=== PATIENT | female | born 1990 | race Caucasian/White ===

== ENCOUNTER → 2016-04-18 | Outpatient (CLI) | payer OTHER ==
--- NOTE | 2016-04-18 18:11 | DIAGNOSTIC IMAGING REPORT ---
PROCEDURE: US OB DETAILED ANATOMIC INDICATION: ANATOMY TECHNIQUE: Betancur scale, color, and spectral Doppler images of the second trimester gravid uterus were obtained. COMPARISON: OB ultrasound 02/22/2016 FINDINGS: Single intrauterine with breech presentation, anterior placenta without previa. Heart rate 140 bpm. Amniotic fluid is unremarkable. Normal closed cervix measures 4.5 cm. The anatomic survey, including the intracranial anatomy, nuchal region, spine, [id number]-[id number] view, chest and diaphragm, stomach and abdomen, three-vessel cord and cord insertion, bladder and pelvis, kidneys and extremities, is within normal limits. Profile and outflow tracts were not well visualized. BPD 4.3 cm, 19 weeks; head circumference 16 cm, 18 weeks 6 days; abdominal circumference 14.2 cm, 19 weeks 4 days; femur length 2.9 cm, 18 weeks 6 days. Composite age 19 weeks 1 day. VALORIE 09/11/2016. IMPRESSION: 1. Single live intrauterine , breech, 19 weeks 1 day 2. VALORIE 09/11/2016, 6 days accelerated growth 3. Profile and outflow tracts not well visualized. Recommend follow-up ultrasound in 2-3 weeks. 4. Remainder of the anatomic survey is within normal limits
== END ==
LOC: US SRH 16:23
DX: O32.1XX0 Maternal care for breech presentation, not applicable or unspecified (principal); Z3A.19 19 weeks gestation of pregnancy

== ENCOUNTER 2016-05-17 16:45 | Outpatient (CLI) | payer OTHER ==
--- NOTE | 2016-05-17 18:30 | DIAGNOSTIC IMAGING REPORT ---
PROCEDURE: US OB RE-EVALUATION INDICATION: FOLLOWUP INCOMPLETE ANATOMY SCAN TECHNIQUE: Betancur scale, color, and spectral Doppler images of the second trimester gravid uterus were obtained. COMPARISON: OB ultrasound dated 04/18/2016 FINDINGS: A single living intrauterine is in vertex presentation. There is regular cardiac activity at a rate of 147 beats per minute. The placenta is anterior and away from the internal cervical os. The cervix is closed measuring approximately 3.4 cm in length. The amniotic fluid volume is subjectively normal. Biparietal diameter 5.8 cm at the 26 3 weeks and 4 days Head circumference 21.5 cm at 23 weeks and 4-day Abdominal circumference 18.2 cm at 23 weeks and 0-day Femur length 4.1 cm at 23 weeks and 1 day Composite gestational age 23 weeks and 2 days, VALORIE 09/11/2016 profile and cardiac views were well visualized and normal. Stomach bladder and kidneys were normal. IMPRESSION: 1. Single living intrauterine with a composite gestational age of 23 weeks and 2 days, VALORIE 09/11/2016 2. Symmetric and normal anatomy.
== END 2016-05-17 23:00 ==
LOC: US SRH 16:45
DX: Z34.92 Encounter for supervision of normal pregnancy, unspecified, second trimester (principal); Z3A.23 23 weeks gestation of pregnancy

== ENCOUNTER 2016-09-08 23:20 | Inpatient (IN) | payer OTHER ==
[~2016-09-08] VITALS: Ht 182.9 cm; Wt 77.1 kg
[2016-09-09] VITALS (11 sets, daily range): BP systolic 105–126; BP diastolic 54–74
[2016-09-10 00:30] VITALS: BP 124/81
[2016-09-10 08:30] VITALS: BP 95/55
--- NOTE | 2016-09-10 09:15 | Progress Note ---
Subjective General Patient is here for with post bleeding. Overall, is feeling well no sob, dizziness with standing. No fevers. No longer bleeding. Physical Exam Vital Signs / I&Os Vital Signs Date Time Temp Pulse Resp B/P Pulse O2 O2 Flow FiO2 Ox Delivery Rate 09/10 0030 98.2 98 18 124/81 09/09 2137 65 119/70 09/09 2129 67 126/74 09/09 2126 85 119/69 09/09 2121 75 114/68 09/10 2115 66 118/67 09/09 2109 69 16 111/64 09/09 2052 76 18 108/59 09/09 2049 66 109/58 09/09 2029 83 105/57 09/09 2009 99 111/54 09/10 1999 93 108/58 I&O 09/10 0000 09/09 1600 09/09 0800 Intake Total Output Total Balance General Appearance Alert, Cooperative Lungs Clear to auscultation, Normal air movement Cardiovascular Regular rate and rhythm, No murmurs, gallops, rubs Abdomen Soft, uterus firm at Umbillicus Extremities No edema LAB Results Laboratory Tests 09/09 2144 Hematology WBC (4.5 - 11.5 K/uL) 18.5 RBC (4.00 - 5.20 M/uL) 3.27 Hgb (12.0 - 16.0 gm/dL) 9.3 Hct (36.0 - 46.0 %) 27.8 MCV (80 - 100 fL) 85 MCH (26 - 34 pg) 29 RDW (11.6 - 14.8 %) 13.5 Neut % (Auto) (50 - 75 %) 84.3 Lymph % (Auto) (25 - 40 %) 10.4 [place] % (Auto) (3 - 14 %) 4.6 Eos % (Auto) (0 - 4 %) 0.3 Baso % (Auto) (0 - 2 %) 0.4 Plt Count, EDTA (150 - 400 K/uL) 227 PUBS MCHC (31 - 37 g/dL) 33 Assessment and Plan Problem List 1. Routine follow-up Plan Patient with and then post bleeding, now doing better. Had stable hct last pm. Is now much improved. Has a nice firm uterus. will have patient re checked on cbc this am . If stable may consider d/c this pm.
[2016-09-10 14:15] VITALS: BP 100/59
--- NOTE | 2016-09-10 16:54 | Provider's Discharge Care Plan ---
Problem, Goal, Plan Problem List 1. Routine follow-up Instructions: Follow up as directed
--- NOTE | 2016-09-10 16:54 | Provider's Discharge Care Plan ---
Problem, Goal, Plan Problem List 1. Routine follow-up Instructions: Follow up as directed
[2016-09-10 17:30] VITALS: BP 109/63
== END 2016-09-10 20:30 | disposition home or self-care (01) | DRG 774 ==
LOC: OBC SRH 23:20 → OB SRH 23:21 → OBC SRH 09-09 03:32 → OB SRH 09-09 03:32
PROVIDERS: ADMIT Family Medicine
PROC: 10E0XZZ Delivery of Products of Conception, External Approach (ICD-10-PCS; principal; 2016-09-09)
PROC: 0UCGXZZ Extirpation of Matter from Vagina, External Approach (ICD-10-PCS; principal; 2016-09-09)
DX: O62.1 Secondary uterine inertia (principal); Z37.0 Single live birth; O72.1 Other immediate postpartum hemorrhage; Z3A.38 38 weeks gestation of pregnancy
CPT/HCPCS: 40010; 83411; 90001; 90074; 90155; 90600; 90605; 90606; 91004; 95059